=== PATIENT | male | born 1965 | race Caucasian/White ===

== ENCOUNTER 2019-02-05 18:35 | Emergency (ER) | payer OTHER ==
[~2019-02-05] VITALS: Ht 172.7 cm; Wt 67.8 kg
--- NOTE | 2019-02-05 19:22 | NUR ---
patient states that he can not remember his last tetanus; "definately over 5 years ago"
[2019-02-05] MEDS ORDERED: LIDOcaine 1% 30ml preserv. free vial SQ STA (19:29)
[2019-02-05] MEDS ORDERED: TETanus/Pertussis (Acell)/Diphther VAC/PF (Tdap-Adult) 0.5ml syringe IMVAC ONE ×2 (19:30→21:20)
[2019-02-05] MEDS ORDERED: bacitracin 15gm ointment TP ONE (20:15)
[2019-02-05] MEDS ORDERED: ceFAZolin 1000mg inj IV ONE (20:30)
[2019-02-05] MEDS ORDERED: ceFAZolin 2gm in dextrose, iso 100 ML IV ONE (20:35)
--- NOTE | 2019-02-05 20:57 | NUR ---
DR HARP IN ROOM SUTURING PATIENT'S THUMB: PT WILL GET IV AND HIS 2 GRAMS OF ANCEF WHEN MD DONE SUTURING FOR AN OPEN FRACTURE
[2019-02-05] MEDS ORDERED: ONDA4TAB6 PO (21:58)
[2019-02-05] MEDS ORDERED: CEPH-572 PO (21:58)
[2019-02-05] MEDS ORDERED: HYDR-4353 PO (21:58)
[2019-02-05] MEDS ORDERED: ondansetron/PF 4mg/2ml inj IV ONE (22:15)
[2019-02-05] MEDS ORDERED: HYDROcodone/acetaminophen 10/325mg tab PO ONE (22:15)
[2019-02-05] MEDS ORDERED: HYDROmorphone 1 mg/ml syringe IV ONE (22:15)
[2019-02-05 23:38] VITALS: BP 124/65
== END 2019-02-05 23:45 | disposition home or self-care (01) ==
LOC: ER 18:36
DX: S62.521B Displaced fracture of distal phalanx of right thumb, initial encounter for open fracture (principal); S67.01XA Crushing injury of right thumb, initial encounter; Z98.890 Other specified postprocedural states; W45.8XXA Other foreign body or object entering through skin, initial encounter; Y93.89 Activity, other specified; Y92.89 Other specified places as the place of occurrence of the external cause; Y99.9 Unspecified external cause status
CPT/HCPCS: 11760; 73140; 90471; 90715; 96365; 96375; 99284; J0690; J1170; J2405; J3490